=== PATIENT | female | born 1930 | race Caucasian/White ===

== ENCOUNTER → 2017-04-13 | Outpatient (CLI) | payer OTHER, BC ==
[~2017-04-13] MED LIST: CALCTAB5 PO; CHOL100010 PO; CYAN3INJ IM; METO25TA3 PO; MULT-190 PO; MULT-506 PO; OPTIRAY 320 IV PRN; POLYSOL4 OPB
--- NOTE | 2017-04-13 12:52 | DIAGNOSTIC IMAGING REPORT ---
(CHEST) THORAX WITH CLINICAL HISTORY: 86 years-old Female presenting with GASTRIC CA. TECHNIQUE: Multidetector CT angiography was performed after the administration of intravenous contrast. IV contrast: 93 mL of Omnipaque 320. COMPARISON: 04/02/2015. CT DOSE: The estimated cumulative dose is 431.23 mGy.cm. FINDINGS: Checking Department Supervisor topogram: Left subclavian Mediport terminates in the superior vena cava. On soft tissue windows, normal thyroid and thoracic inlet. No axillary, supraclavicular, mediastinal, or hilar lymphadenopathy. A left subclavian Mediport terminates in the superior vena cava. Three-vessel aortic arch. Multichamber enlargement of the heart. Postsurgical changes of the esophagus immediately inferior to the left atrium. No pericardial or pleural effusion. Please see separately dictated CT of the abdomen and pelvis for intra-abdominal findings. On lung windows, bandlike opacity at the left lung base likely scarring. Minimal dependent ground glass opacity at the left lower lobe, likely atelectasis. 3 mm nodule at the left apex (series 6 image 43), unchanged from prior. Subpleural/pleural based 5 mm nodule in the medial basal segment of the right lower lobe (series 6 image 176), unchanged in size from prior exam. A few punctate nodules noted in the superior segment of the right lower lobe. Airways patent. On bone windows, multilevel degenerative changes of the thoracic spine. No destructive osseous lesion. IMPRESSION: 1. No evidence of intrathoracic metastases. No lymphadenopathy. Stable benign nodules. 2. Postsurgical changes of the distal esophagus. 3. Cardiomegaly. 4. Please see separately dictated CT of the abdomen and pelvis for intra-abdominal findings. Electronically signed by: Trev Hong 04/13/2017 12:51 PM Dictated Date/Time: 04/13/2017 12:39 PM
--- NOTE | 2017-04-13 13:10 | DIAGNOSTIC IMAGING REPORT ---
ABD/PELVIS IV AND ORAL CONT HISTORY:86 yearsFemaleGASTRIC CA there is a follow-up study. Prior partial gastrectomy and esophagojejunostomy COMPARISON: 04/02/2015 CT abdomen, PET CT 02/15/2014. TECHNIQUE: Multiple axial CT images of the abdomen and pelvis were obtained following the administration of 93 mL Optiray 320. Oral contrast was also used. FINDINGS: There is minimal subsegmental pleural parenchymal scarring with areas of atelectasis again seen within the lung bases. There is no gross pneumoperitoneum. Enlargement of the imaged inferior cardiac chambers redemonstrated. 7 mm cyst of the posterior right hepatic lobe is again seen. There is mild periportal edema. Gallbladder, spleen and right adrenal gland are unremarkable. There is unchanged mild thickening of the left adrenal gland suggesting benign etiology based on stability from 04/02/2015 study. There is moderate to extensive pancreatic atrophy. 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 No renal calculi identified. No hydronephrosis. The urinary bladder, prostate and seminal vesicles are within normal limits. There is tortuosity with moderate degree of mixed plaquing involving the abdominal aorta. No pathologic adenopathy of the abdomen or pelvis identified. Postsurgical changes of prior gastrectomy with esophagojejunostomy redemonstrated. No evidence of obstruction. Noninflamed colonic diverticula are seen. The soft tissues are unremarkable. Bones are demineralized. There are no suspicious lytic or blastic bony lesions. Multilevel changes are seen throughout the spine with severe right and moderate left osteoarthritis. Is evidence of prior cannulated screw placement of the left femoral neck. Convex left curvature of the lumbar spine. IMPRESSION: 1. Stable exam with post surgical changes of the stomach redemonstrated. 2. No pathologic adenopathy or evidence of metastatic disease. 3. Stable incidental findings as above. The above report was generated using voice recognition software. It may contain grammatical, syntax or spelling errors. Electronically signed by: Varinder Vergara 04/13/2017 1:09 PM Dictated Date/Time: 04/13/2017 12:57 PM
== END | disposition home or self-care (01) ==
LOC: C.CTS 09:43
PROVIDERS: ATTEND Nurse Practitioner Family
DX: Z85.038 Personal history of other malignant neoplasm of large intestine (principal)

== ENCOUNTER → 2017-05-18 | Outpatient (CLI) | payer OTHER, BC ==
[~2017-05-18] MED LIST changes: -OPTIRAY 320 IV PRN
== END | disposition home or self-care (01) ==
LOC: C.MAMM 11:12
PROVIDERS: ATTEND Internal Medicine Rheumatology
DX: M81.0 Age-related osteoporosis without current pathological fracture (principal); E55.9 Vitamin D deficiency, unspecified

== ENCOUNTER → 2017-06-02 | Outpatient (CLI) | payer OTHER, BC ==
--- NOTE | 2017-06-02 16:10 | MAMMOGRAPHY REPORT ---
BILATERAL DIGITAL SCREENING MAMMOGRAM WITH CAD: 06/02/2017 CLINICAL HISTORY: Routine screening. Patient has no complaints. TECHNIQUE: Bilateral CC, MLO and repeat right MLO views were obtained. Current study was also evalua corrine with a Computer Aided Detection (CAD) system. COMPARISON: Comparison is made to exams dated: 05/11/2015 mammogram, 05/22/2016 mammogram, 03/30/2014 ma mmogram, 11/13/2011 mammogram, 08/16/2009 mammogram - [facility], and 08/01/2008. BREAST COMPOSITION: The tissue of both breasts is heterogeneously dense, which may obscure small mas ses. FINDINGS: There are moderate vascular calcifications in the breasts. Stable grouping of faint amorp hous macro calcifications in the upper outer posterior right breast. A linear scar marker overlies t he upper outer posterior left breast, denoting an area of prior surgical excision. No new suspicious mass, architectural distortion or cluster of microcalcifications is seen. IMPRESSION: ACR BI-RADS CATEGORY 1: NEGATIVE There is no mammographic evidence of malignancy. A 1 year screening mammogram is recommended. The pa tient will receive written notification of the results. Approximately 10% of breast cancers are not detected with mammography. A negative mammographic report should not delay biopsy if a clinically suggestive mass is present. Rhina Page M.D. ay/:06/02/2017 15:37:46 County Commissioner: Chad Jha M, [facility] letter sent: Normal 1/2 BI-RADS Code: ACR BI-RADS Category 1: Negative
== END | disposition home or self-care (01) ==
LOC: C.MAMM 11:44
PROVIDERS: ATTEND Internal Medicine
DX: Z12.31 Encounter for screening mammogram for malignant neoplasm of breast (principal)